=== PATIENT | female | born 1995 | race African-American/Black ===

== ENCOUNTER 2017-09-20 18:52 | Emergency (ER) | payer OTHER ==
[2017-09-20 19:33] LABS: Hemoglobin 11.7 g/dL (12.0-16.0); Mean Corpuscular Hemoglobin 31.1 pg (27.0-31.0); Mean Corpuscular Volume 88.8 fL (78.0-98.0); Mean Platelet Volume 7.1 fL (7.4-10.4); Platelet Count 269 thou/uL (130-400); RBC Distribution Width 11.8 % (11.5-14.5); Red Blood Cell (RBC) Count 3.76 mill/uL (4.20-5.40); White Blood Cell (WBC) Count 12.3 thou/uL (4.8-10.8)
[2017-09-20 19:56] LABS: Eosinophils 2 % (0-10); Lymphocytes 6 % (21-51); MDiff Complete? YES; Monocytes 6 % (0-10); Neutrophil 86 % (42-75); PLT Morphology Comment Appears Adequate
[2017-09-20 19:57] LABS: Bilirubin Negative (Negative); Blood, Urine Large (Negative); Clarity TURBID (Clear); Glucose, Urine (Dipstick) Negative (Negative); Leukocyte Moderate (Negative); Nitrite Negative (Negative); Protein, Urine (Dipstick) 30 mg/dL (Neg-Trace); Specific Gravity, Urine 1.011 (1.002-1.036); Urobilinogen 0.2 mg/dL (0.2-1.0); pH, Urine 5.5 (5.0-9.0)
[2017-09-20 20:03] LABS: Pathc Cast-AUWi Flag 3.92 (0-2.49)
[2017-09-20 20:12] LABS: Bacteria/HPF 1+ HPF (None Seen); Hyaline Casts/LPF 0-3 HYALINE CAST LPF (0-3 Hyaline); Manual Microscopic Reviewed? No Path Casts Seen; Renal Epithelial None Seen HPF (0-3); Transitional Epithelial 0-3 HPF (0-3)
== END 2017-09-20 21:56 | disposition home or self-care (01) ==
LOC: ERS 18:52
DX: O20.0 Threatened abortion (principal); O23.41 Unspecified infection of urinary tract in pregnancy, first trimester; Z3A.01 Less than 8 weeks gestation of pregnancy
CPT/HCPCS: 36415; 81003; 81015; 84702; 85025; 86900; 86901; 87086

== ENCOUNTER 2018-01-26 17:36 | Day surgery (SDC) | payer OTHER ==
[2018-01-26 18:58] LABS: Hemoglobin 10.4 g/dL (12.0-16.0); Mean Corpuscular HGB CONC 33.7 g/dL (32.0-36.0); Mean Corpuscular Hemoglobin 29.5 pg (27.0-31.0); Mean Corpuscular Volume 87.6 fL (78.0-98.0); Mean Platelet Volume 7.6 fL (7.4-10.4); Platelet Count 308 thou/uL (130-400); Red Blood Cell (RBC) Count 3.53 mill/uL (4.20-5.40)
--- NOTE | 2018-01-26 19:21 | PDOC.EVN ---
Event Note - Event Note Event Note: OBGYN marketing automation manager: Patient seen at bedside. H&P to follow See subsequent dictation
--- NOTE | 2018-01-26 20:16 | HP ---
TIME OF EVALUATION: Roughly 1915 hours. LOCATION: Labor and Delivery, bed 6. This is a patient of Dr. Padilla. REASON FOR EVALUATION: Vaginal spotting/slight bleeding. HISTORY OF PRESENT ILLNESS: In brief, this patient presented as a G1, P0, with an EDC of April 16, giving her an EGA of 28 weeks and 4 days. She states that she had light period like bleeding, but no clots. She denies vaginal bleeding or rupture of membranes. She has good movement. She denies any complications up to this point. She states that the bleeding was around 1630 hours today. She last had vaginal intercourse earlier this afternoon before the bleeding occurred. She denies any recent trauma or other injuries. REVIEW OF SYSTEMS: The patient states that she had a retroplacental clot in the 1st trimester, but no other issues. PAST MEDICAL HISTORY: Negative. ALLERGIES: NONE. PAST SURGICAL HISTORY: None. PHYSICAL EXAMINATION: VITAL SIGNS: Blood pressure is 121/76, pulse is 86. heart tones are in the 160s. GENERAL: Clinically, the patient is in no acute distress. ABDOMEN: Soft, nontender, and size consistent with date. I did not perform a cervical examination as I was awaiting the ultrasound, which I ordered, results. I inspected the perineum and there were no clots or evidence of active bleeding. I asked the patient to cough and Valsalva and no clots were expressed from the vagina. ASSESSMENT: This is a primigravida at 28 weeks and four days, with known blood type of Rh positive, with postcoital spotting/slight bleeding. PLAN: 1. I have ordered a sonogram for estimated weight. 2. The sonogram will also help show placental location. 3. I have ordered a limited ultrasound for cervical length. 4. I have explained both of these test to the patient and the rationale for ordering them. 5. She is Rh positive, so no RhoGAM. 6. No current evidence of labor at this time. 7. If the ultrasound and cervical length are both normal, we will discharge with a diagnosis of post-coital bleed. Job ID: [id number]
--- NOTE | 2018-01-26 22:19 | ULT ---
OB ULTRASOUND: 01/26/18 HISTORY: Vaginal bleeding. Real time imaging of the pelvis shows a single viable intrauterine in a vertex presentation . Placenta is more right sided in location without evidence of previa. Cervical canal length is 3.2 c m. Amniotic fluid is judged to be adequate for this stage of . The amniotic fluid index is 1 9.7. measurements are as follows: BPD 7.6 cm 30 weeks, 3 days Head circumference 27.5 cm 30 weeks, 0 days Abdominal circumference 25.0 cm 29 weeks, 2 days Femur length 5.7 cm 30 weeks, 1 day Slightly limited review of the anatomy was performed. Cord insertion was never definitively mel ntified. Some of the intracranial structures were not well visualized due to head position. No abnorm alities were detected. IMPRESSION: 1. Single viable intrauterine in a vertex presentation. Overall measurements correspon d to a gestational age of 30 weeks, 0 days. Estimated date of delivery is 04/06/18. 2. Placenta which is more posterior and right sided in location. No previa. No abruptio. POS: [facility]
== END 2018-01-26 21:23 | disposition home or self-care (01) ==
LOC: SDC 17:36 → L&D/OP 21:23
PROVIDERS: ATTEND Obstetrics & Gynecology
DX: O26.853 Spotting complicating pregnancy, third trimester (principal); Z3A.28 28 weeks gestation of pregnancy
CPT/HCPCS: 36415; 76815; 85027; 86900; 86901; 99283

== ENCOUNTER 2018-04-04 22:00 | Inpatient (IN) | payer OTHER ==
--- NOTE | 2018-04-03 20:40 | PDOC.LDHP ---
Labor and Delivery H&P Chief complaint: scheduled induction HPI: 22 yo @ 38w2d admit for IOL due to GHTN. Current gestational age (weeks): 38 Due date: 04/16/18 Grav: 1 Para: 0 OB History Details: Current Current complications: gestational hypertension Abnormal US findings: No Past Medical History: Anemia Current medications: pre- vitamins, iron Previous surgical history: none Allergies/Adverse Reactions: Allergies Allergy/AdvReac Type Severity Reaction Status Date / Time No Known Allergies Allergy Verified 01/26/18 18:38 Social history: none - Physical Exam Vital signs reviewed and normal: yes General: NAD Heart: RRR Lungs: nonlabored breathing Abdomen: gravid Extremeties: pitting edema FHT: category 1 [place] contractions every: q2-5 min - Vaginal Exam cm dilated: 2 (cephalic) Effacement: 75% Station: -1 - OB Labs Blood type: O RH: positive Antibody Screen: negative HIV: negative RPR: negative HEPSAg: negative 1 hour GCT: negative GBS: negative Urine drug screen: not done Rubella: immune Additional Labs: SS wnl - Assessment 38w2d IUP GHTN Anemia - Plan Plan: admit to L&D, cervical ripening (s/p cytotec, now on pitocin.), informed consent obtained, anesthesia consult for pain management -: BPs currently wnl. PreE labs wnl. Monitor BPs. 2 units PRBCs on hold due to anemia
[2018-04-04] MEDS ORDERED: NS / Oxytocin 40 units/1000ml 1,000 ML IV PRN (23:43)
[2018-04-04] MEDS ORDERED: Carboprost 250 MCG/ML AMP IM PRN (23:43)
[2018-04-04] MEDS ORDERED: Ibuprofen 800 MG TAB PO PRN (23:43)
[2018-04-04] MEDS ORDERED: Lidocaine 1% (PF) 30 ML VIAL SC PRN (23:43)
[2018-04-04] MEDS ORDERED: HYDROcodone/Acetaminophen 5/325 mg Tablet PO PRN (23:43)
[2018-04-04] MEDS ORDERED: Acetaminophen 500 MG TAB PO PRN (23:43)
[2018-04-04] MEDS ORDERED: Promethazine HCl 25 MG/ML VIAL IM PRN (23:43)
[2018-04-04] MEDS ORDERED: Misoprostol 200 MCG TAB PR PRN (23:43)
[2018-04-04] MEDS ORDERED: Butorphanol Tartrate 1 MG/ML VIAL SLOW IVP PRN (23:43)
[2018-04-04] MEDS ORDERED: Methylergonovine 0.2 MG/ML VIAL IM PRN (23:43)
[2018-04-04] MEDS ORDERED: Ondansetron PF 4 MG/2 ML Vial IVP PRN (23:43)
[2018-04-04] MEDS ORDERED: Diphenoxylate HCl/Atropine Tablet PO PRN (23:43)
[2018-04-05 00:07] VITALS: BMI 28.7
[2018-04-05] MEDS: Lactated Ringer's 1,000 ML IV SCH ×4 (00:36→19:10)
[2018-04-05] MEDS: Misoprostol 100 MCG TAB VAG SCH ×5 (00:36→22:05)
[2018-04-05 00:52] LABS: Hemoglobin 8.7 g/dL (12.0-16.0); Mean Corpuscular HGB CONC 32.1 g/dL (32.0-36.0); Mean Corpuscular Hemoglobin 25.4 pg (27.0-31.0); Mean Corpuscular Volume 79.2 fL (78.0-98.0); Mean Platelet Volume 9.1 fL (7.4-10.4); Platelet Count 333 thou/uL (130-400); RBC Distribution Width 14.4 % (11.5-14.5); Red Blood Cell (RBC) Count 3.41 mill/uL (4.20-5.40); White Blood Cell (WBC) Count 11.2 thou/uL (4.8-10.8)
[2018-04-05 01:09] LABS: ALT (SGPT) 8 U/L (8-55); AST (SGOT) 20 U/L (5-34); Alkaline Phosphatase 237 U/L (40-150); Anion Gap 16 mmol/L (10-20); BUN (Urea Nitrogen) Less than 4 mg/dL (7.0-18.7); Bilirubin, Total 0.4 mg/dL (0.2-1.2); Calc. Creatinine Clearance 190 mL/min (70-130); Calcium 8.4 mg/dL (7.8-10.44); Carbon Dioxide 15 mmol/L (22-29); Chloride 109 mmol/L (98-107); Estimated GFR-MDRD Greater than 90; Globulin 3.2 g/dL (2.4-3.5); Glucose 89 mg/dL (70-105); Potassium 3.6 mmol/L (3.5-5.1); Protein, Total 6.2 g/dL (6.0-8.3); Sodium 136 mmol/L (136-145)
[2018-04-05 01:25] LABS: Syphilis Antibody Nonreactive (Nonreactive); Syphilis Antibody Index 0.02 S/CO (<1.00 Non-Reactive)
[2018-04-05 01:31] LABS: HBSAg Index 0.19 S/CO (0-0.99); HIV (1/2) Antibody/Antigen Non-Reactive (NonReactive); HIV 1/2 INDEX 0.06 S/CO (<1.00); Hep B Surf Ag Non-Reactive S/CO (NonReactive)
[2018-04-05 01:38] LABS: Bilirubin Negative (Negative); Blood, Urine Negative (Negative); Clarity CLOUDY (Clear); Glucose, Urine (Dipstick) Negative (Negative); Leukocyte Moderate (Negative); Nitrite Negative (Negative); Protein, Urine (Dipstick) Negative (Neg-Trace); Specific Gravity, Urine 1.005 (1.002-1.036); Urobilinogen 0.2 mg/dL (0.2-1.0); pH, Urine 5.5 (5.0-9.0)
[2018-04-05 01:41] LABS: Bacteria/HPF None Seen HPF (None Seen); Hyaline Casts/LPF 0-3 HYALINE CAST LPF (0-3 Hyaline)
[2018-04-05 01:51] LABS: Renal Epithelial None Seen HPF (0-3); Transitional Epithelial NONE SEEN HPF (0-3)
[2018-04-05] MEDS: NS w/ Oxytocin 10 units 500 ML IV SCH (06:30)
[2018-04-05] MEDS ORDERED: Fentanyl 4 mcg/Bup 0.1% Cadd 100 ML ONE ×2 (12:25→19:07)
[2018-04-05] MEDS ORDERED: Lidocaine 1.5%/Epinephrine 1:200,000 5 ML AMPUL IJ ONE ×3 (13:00→18:11)
--- NOTE | 2018-04-05 13:00 | PDOC.LDPN ---
Labor & Delivery Progress Note - Subjective Subjective: painful contractions - Objective Vital signs reviewed and normal: yes General: NAD Uterine fundus: non tender SVE: 4 Effacement: 90% Station: -1 FHT: category 1 (140s, mod refugio, +accels, no decels - discontinuous tracing ) [place] contractions every: not assesssing well, pt feels ctx q2-3 min AROM: clear fluid - Assessment (1) 38 weeks gestation of Code(s): Z3A.38 - 38 WEEKS GESTATION OF Current Visit: Yes Status : Acute (2) Gestational hypertension Code(s): O13.9 - GESTATIONAL HTN W/O SIGNIFICANT PROTEINURIA, UNSP TRIMESTER Current Visit: Yes Status: Acute (3) Iron deficiency anemia Code(s): D50.9 - IRON DEFICIENCY ANEMIA, UNSPECIFIED Current Visit: Yes Status: Acute -: Continue pitocin and monitor BPs.
[2018-04-05] MEDS ORDERED: Ondansetron PF 4 MG/2 ML Vial IVP PRN ×2 (13:18→22:36)
[2018-04-05] MEDS ORDERED: Acetaminophen 325 MG TAB PO PRN (13:18)
[2018-04-05] MEDS ORDERED: Naloxone HCl 0.4 mg/ml Vial IVP PRN ×2 (13:18)
[2018-04-05] MEDS ORDERED: Lactated Ringer's 500 ML IV PRN (13:18)
[2018-04-05] MEDS ORDERED: ePHEDrine/0.9% NaCl/PF SYRINGE 50 mg/10 ml SLOW IVP PRN (13:18)
[2018-04-05] MEDS ORDERED: Eucerin (Mineral Oil/Petrolatum,White) 30 gm Jar TOP PRN (13:18)
[2018-04-05] MEDS ORDERED: Promethazine HCl 25 MG/ML VIAL IM PRN (13:18)
[2018-04-05] MEDS ORDERED: diphenhydrAMINE 50 MG/ML VIAL IVP PRN (13:18)
[2018-04-05] MEDS ORDERED: Communication Order-Pharmacy FS SCH (13:30)
[2018-04-05] MEDS ORDERED: Fentanyl 4 mcg/Bupivacaine 0.1% Cassette 100 ML EPIDURAL SCH (13:30)
--- NOTE | 2018-04-05 16:47 | PDOC.LDPN ---
Labor & Delivery Progress Note - Subjective Subjective: comfortable - Objective Vital signs reviewed and normal: yes General: NAD Uterine fundus: non tender Dilation: 5 Effacement: 100% Station: 0 FHT: category 1 (130s, mod refugio, +accels, occasional early decels ) [place] contractions every: q2 min - Assessment (1) 38 weeks gestation of Code(s): Z3A.38 - 38 WEEKS GESTATION OF Current Visit: Yes Status : Acute (2) Gestational hypertension Code(s): O13.9 - GESTATIONAL HTN W/O SIGNIFICANT PROTEINURIA, UNSP TRIMESTER Current Visit: Yes Status: Acute (3) Iron deficiency anemia Code(s): D50.9 - IRON DEFICIENCY ANEMIA, UNSPECIFIED Current Visit: Yes Status: Acute Plan: continue plan of care
--- NOTE | 2018-04-05 21:46 | PDOC.OPDEL ---
OB Operative/Delivery Note Delivery Dr/Surgeon: Jessica Padilla DO Pre-Delivery Diagnosis: medically indicated induction Procedure/Post Delivery Dx: spontaneous vaginal delivery Weeks gestation: 38 Anesthesia: epidural - Findings A Sex: female - 1 min: 8 - 5 min: 9 - Additional Findings/Plan Placenta delivered: spontaneous Repaired Obstetrical Laceration: 2nd degree Estimated blood loss: QBL 970 cc Compilations/Other Findings: in cephalic presentation, CHAVA position. Normal appearing placenta. QBL 970 cc - PPH. Hemabate 250 mcg IM and cytotec 800 mcg AK given with resolution of bleeding and atony. Post delivery plan: routine recovery
[2018-04-05] MEDS ORDERED: Diphenoxylate HCl/Atropine Tablet PO PRN (22:00)
[2018-04-05 22:31] LABS: #Monocytes 0.9 thou/uL (0.11-0.59); #Neutrophils 14.7 thou/uL (1.40-6.50); %Basophils 0.1 % (0.0-1.0); %Eosinophils 0.1 % (0.0-10.0); %Lymphocytes 6.2 % (21.0-51.0); %Monocytes 5.5 % (0.0-10.0); %Neutrophils 88.2 % (42.0-75.0); Hemoglobin 8.3 g/dL (12.0-16.0); Mean Corpuscular Hemoglobin 26.1 pg (27.0-31.0); Mean Corpuscular Volume 81.6 fL (78.0-98.0); Mean Platelet Volume 8.7 fL (7.4-10.4); Platelet Count 264 thou/uL (130-400); RBC Distribution Width 14.3 % (11.5-14.5); Red Blood Cell (RBC) Count 3.19 mill/uL (4.20-5.40); White Blood Cell (WBC) Count 16.6 thou/uL (4.8-10.8)
[2018-04-05] MEDS ORDERED: Benzocaine/Menthol 20-0.5% 60 ML CAN TOP PRN (22:36)
[2018-04-05] MEDS ORDERED: Bisacodyl 10 MG SUPP PR PRN (22:36)
[2018-04-05] MEDS ORDERED: Milk Of Magnesia 30 ML UDCUP PO PRN (22:36)
[2018-04-05] MEDS ORDERED: HYDROcodone/Acetaminophen 5/325 mg Tablet PO PRN (22:36)
[2018-04-05] MEDS ORDERED: traMADol HCl 50 MG TAB PO PRN (22:36)
[2018-04-05] MEDS ORDERED: NS / Oxytocin 40 units/1000ml 1,000 ML IV SCH (22:36)
[2018-04-05] MEDS ORDERED: Ibuprofen 800 MG TAB PO SCH (22:45)
[2018-04-06 01:15] LABS: #Lymphocytes 1.3 thou/uL (1.20-3.40); #Monocytes 1.3 thou/uL (0.11-0.59); #Neutrophils 16.1 thou/uL (1.40-6.50); %Eosinophils 0.1 % (0.0-10.0); %Monocytes 6.7 % (0.0-10.0); %Neutrophils 86.1 % (42.0-75.0); Hemoglobin 7.3 g/dL (12.0-16.0); Mean Corpuscular HGB CONC 31.5 g/dL (32.0-36.0); Mean Corpuscular Hemoglobin 25.8 pg (27.0-31.0); Mean Corpuscular Volume 82.1 fL (78.0-98.0); Mean Platelet Volume 8.2 fL (7.4-10.4); Platelet Count 223 thou/uL (130-400); RBC Distribution Width 14.3 % (11.5-14.5); Red Blood Cell (RBC) Count 2.84 mill/uL (4.20-5.40); White Blood Cell (WBC) Count 18.7 thou/uL (4.8-10.8)
[2018-04-06] MEDS: Ibuprofen 800 MG TAB PO SCH ×3 (05:13→21:16)
[2018-04-06] MEDS: NS w/ Oxytocin 10 units 500 ML IV SCH (06:04)
[2018-04-06 07:41] LABS: Hemoglobin 6.7 g/dL (12.0-16.0); Mean Corpuscular HGB CONC 31.6 g/dL (32.0-36.0); Mean Corpuscular Hemoglobin 25.2 pg (27.0-31.0); Mean Corpuscular Volume 79.7 fL (78.0-98.0); Mean Platelet Volume 8.5 fL (7.4-10.4); Platelet Count 247 thou/uL (130-400); RBC Distribution Width 14.2 % (11.5-14.5); Red Blood Cell (RBC) Count 2.65 mill/uL (4.20-5.40); White Blood Cell (WBC) Count 20.9 thou/uL (4.8-10.8)
[2018-04-06 07:55] LABS: Band 9 % (5-11); Hypochromia SLIGHT = 6-15 cells (100X) (0-5/hpf); Lymphocytes 6 % (21-51); MDiff Complete? YES; Monocytes 1 % (0-10); Neutrophil 84 % (42-75); Platelet Morphology Comment Appears Adequate; Polychromasia SLIGHT = 2-3 cells (100X) (0-2/hpf)
--- NOTE | 2018-04-06 08:00 | PDOC.PP ---
Post Progress Note Post Day #: 1 Subjective: Overall feeling well. Tachycardia noted. Denies dizziness or palpitations, however, ambulating only to restroom. Reports moderate lochia. PO intake tolerated: yes Flatus: yes Ambulation: yes Vital Signs (12 hours) Temp Pulse Resp BP Pulse Ox 04/06/18 07:44 99.0 F 113 H 20 120/55 L 98 04/06/18 04:00 98.4 F 101 H 18 119/78 04/06/18 02:10 98.7 F 101 H 20 140/88 04/06/18 00:50 97.9 F 93 20 143/82 H 04/05/18 23:47 98.9 F 101 H 18 129/81 98 Weight Weight 200 lb - Physical Examination General: NAD Deviation from normal: Tachycardia Cardiovascular: no m/r/g Respiratory: non-labored breathing Abdominal: no distention, appropriately TTP Fundus firm & at: below umbilicus Extremities: negative homans (B) Neurological: no gross focal deficits Psychiatric: A&Ox3, normal affect Result Diagrams: 04/06/18 07:28 04/05/18 00:31 Additional Labs: Post Labs Blood Type O POSITIVE 04/05/18 00:31 Hep Bs Antigen Non-Reactive S/CO (NonReactive) 04/05/18 00:31 (1) 38 weeks gestation of Code(s): Z3A.38 - 38 WEEKS GESTATION OF Status: Resolved (2) Gestational hypertension Code(s): O13.9 - GESTATIONAL HTN W/O SIGNIFICANT PROTEINURIA, UNSP TRIMESTER Status: Resolved (3) Iron deficiency anemia Code(s): D50.9 - IRON DEFICIENCY ANEMIA, UNSPECIFIED Status: Acute (4) Vaginal delivery Code(s): O80 - ENCOUNTER FOR FULL-TERM UNCOMPLICATED DELIVERY Status: Acute (5) hemorrhage Code(s): O72.1 - OTHER IMMEDIATE HEMORRHAGE Status: Acute - Assessment/Plan PPD1 Tachycardia noted. BP mild HTN-normal. Due to anemia and tachycardia, recommended 1 unit PRBCs, pt amenable. Repeat CBC after transfusion. Plan for d/c 1-2 days.
[2018-04-06] MEDS: Ferrous Sulfate 325 MG TAB PO SCH ×3 (08:50→17:05)
[2018-04-06] MEDS: Prenatal Vitamin 1 TAB PO SCH (08:50)
[2018-04-06] MEDS: Docusate Calcium (SURFAK) 240 MG CAP PO SCH ×2 (08:50→21:16)
[2018-04-06] MEDS ORDERED: Lidocaine 2% MPF 10 ML AMP (For Epidural Use) ONE (11:11)
[2018-04-06] MEDS ORDERED: Bupivacaine/Epinephrine 0.25% 30 ML VIAL ONE (11:11)
[2018-04-06 16:25] LABS: #Eosinphils 0.1 thou/uL (0.0-0.7); #Lymphocytes 2.2 thou/uL (1.20-3.40); #Neutrophils 14.8 thou/uL (1.40-6.50); %Basophils 0.1 % (0.0-1.0); %Eosinophils 0.3 % (0.0-10.0); %Lymphocytes 12.1 % (21.0-51.0); %Monocytes 5.6 % (0.0-10.0); %Neutrophils 81.9 % (42.0-75.0); Hemoglobin 6.9 g/dL (12.0-16.0); Mean Corpuscular HGB CONC 31.7 g/dL (32.0-36.0); Mean Corpuscular Hemoglobin 26.7 pg (27.0-31.0); Mean Corpuscular Volume 84.4 fL (78.0-98.0); Mean Platelet Volume 8.7 fL (7.4-10.4); Platelet Count 253 thou/uL (130-400); RBC Distribution Width 14.1 % (11.5-14.5); Red Blood Cell (RBC) Count 2.58 mill/uL (4.20-5.40); White Blood Cell (WBC) Count 18.1 thou/uL (4.8-10.8)
--- NOTE | 2018-04-07 05:39 | PDOC.PP ---
Post Progress Note Post Day #: 2 PO intake tolerated: yes Flatus: yes Ambulation: yes Vital Signs (12 hours) Temp Pulse Resp BP BP Pulse Ox 04/07/18 00:25 98.6 F 88 20 128/68 04/06/18 20:07 98.1 F 85 16 135/86 98 04/06/18 18:00 98.0 F 85 18 141/83 H 100 Weight Weight 90.718 kg - Physical Examination General: NAD Cardiovascular: RRR Respiratory: non-labored breathing Abdominal: + bowel sounds, lochia (moderate), no distention, appropriately TTP Fundus firm & at: at umbilicus Neurological: no gross focal deficits Psychiatric: A&Ox3, normal affect Result Diagrams: 04/06/18 16:10 04/05/18 00:31 Additional Labs: Post Labs Blood Type O POSITIVE 04/05/18 00:31 Hep Bs Antigen Non-Reactive S/CO (NonReactive) 04/05/18 00:31 (1) hemorrhage Code(s): O72.1 - OTHER IMMEDIATE HEMORRHAGE Status: Acute (2) Blood transfusion during current hospitalization Code(s): [id number] - Status: Acute (3) Iron deficiency anemia Code(s): D50.9 - IRON DEFICIENCY ANEMIA, UNSPECIFIED Status: Acute (4) Vaginal delivery Code(s): O80 - ENCOUNTER FOR FULL-TERM UNCOMPLICATED DELIVERY Status: Acute (5) Gestational hypertension Code(s): O13.9 - GESTATIONAL HTN W/O SIGNIFICANT PROTEINURIA, UNSP TRIMESTER Status: Resolved - Assessment/Plan PPD2 Tachycardia resolved. BP mild HTN-normal. Range from 119/78-143/92. s/p 1 unit pRBC's. Patient asymptomatic. VSS. Pending AM CBC. Hg 8.7 --> 6.7 -- > 6.9 Plan for d/c later today. OBGYN FACULTY: Patient care reviewed. Patient evaluated by me as well. Agree that DC today may be possible pending the repeat Hgb from this AM. No sxs anemia at this time.Hgb noted.
[2018-04-07] MEDS: Ibuprofen 800 MG TAB PO SCH ×2 (05:44→14:06)
[2018-04-07 06:33] LABS: Hemoglobin 6.8 g/dL (12.0-16.0)
--- NOTE | 2018-04-07 08:08 | PDOC.EVN ---
Event Note - Event Note Event Note: Hct this AM is 20.9 We will check orthostatics and eval if another unit is needed or IV Fe Oncall team aware
[2018-04-07] MEDS: NS w/ Oxytocin 10 units 500 ML IV SCH (09:04)
[2018-04-07] MEDS: Docusate Calcium (SURFAK) 240 MG CAP PO SCH (09:04)
[2018-04-07] MEDS: Prenatal Vitamin 1 TAB PO SCH (09:04)
[2018-04-07] MEDS: Ferrous Sulfate 325 MG TAB PO SCH ×2 (09:04→14:06)
[2018-04-07] MEDS ORDERED: Iron Sucrose Complex 200 MG in Sodium Chloride 0.9% 250 ML 250 ML IVPB SCH (09:15)
[2018-04-07] MEDS ORDERED: Iron Sucrose Complex 500 MG in Sodium Chloride 0.9% 250 ML 250 ML IVPB SCH (10:00)
[2018-04-07 12:55] VITALS: BP 136/98; TEMP 98.3
--- NOTE | 2018-04-07 15:51 | PDOC.EVN ---
Event Note - Event Note Event Note: Orthostatics negative and tachycardia resolved. Pt entirely asymptomatic, discussed options earlier and pt opted for iron infusion>blood transfusion. She is s/p Iron infusion and had no side effects. Pt denies weakness, dizziness, lightheadedness, cp, sob, syncope/pre-syncope and palpitations. Will discharge after short obs period s/p iron infusion. Oral Iron sent to pharmacy.
== END 2018-04-07 17:20 | disposition home or self-care (01) | DRG 807 ==
LOC: L&D 23:19 → 3SW 04-06 00:07
PROVIDERS: ADMIT Obstetrics & Gynecology; ATTEND Obstetrics & Gynecology
PROC: 10E0XZZ Delivery of Products of Conception, External Approach (ICD-10-PCS; principal; 2018-04-05)
PROC: 0KQM0ZZ Repair Perineum Muscle, Open Approach (ICD-10-PCS; 2018-04-05)
PROC: 3E033VJ Introduction of Other Hormone into Peripheral Vein, Percutaneous Approach (ICD-10-PCS; 2018-04-05)
PROC: 30233N1 Transfusion of Nonautologous Red Blood Cells into Peripheral Vein, Percutaneous Approach (ICD-10-PCS; 2018-04-06)
DX: O13.4 Gestational [pregnancy-induced] hypertension without significant proteinuria, complicating childbirth (principal); Z37.0 Single live birth; Z3A.38 38 weeks gestation of pregnancy; O72.1 Other immediate postpartum hemorrhage; O70.1 Second degree perineal laceration during delivery; O99.02 Anemia complicating childbirth; D50.9 Iron deficiency anemia, unspecified
CPT/HCPCS: 36415; 36430; 51702; 80053; 81001; 85014; 85018; 85025; 85027; 86780; 86850; 86900; 86901; 87340; 87389; J1200; J1756; J2001; J2405; J3490; J7050; P9016